=== PATIENT | male | born 1990 | race Caucasian/White ===

== ENCOUNTER 2018-11-03 02:15 | Emergency (ER) | payer MEDICAID ==
[~2018-11-03] VITALS: Ht 172.7 cm; Wt 105.0 kg
[2018-11-03] MEDS ORDERED: IBUPROFEN 600MG TABLET PO ONE (05:00)
[2018-11-03] MEDS ORDERED: TRAMADOL 50MG TABLET PO ONE (05:00)
[2018-11-03] MEDS ORDERED: AMOXICILLIN/POTASSIUM CLAVULANATE 875/125MG TAB PO ONE (06:15)
[2018-11-03 06:57] VITALS: BP 137/67
== END 2018-11-03 08:30 | disposition home or self-care (01) ==
LOC: ER 08:16
DX: S61.452A Open bite of left hand, initial encounter (principal); S60.222A Contusion of left hand, initial encounter; S00.83XA Contusion of other part of head, initial encounter; L03.114 Cellulitis of left upper limb; Y04.1XXA Assault by human bite, initial encounter; Y93.89 Activity, other specified; Y92.89 Other specified places as the place of occurrence of the external cause
CPT/HCPCS: 73130; 99284

== ENCOUNTER 2020-06-14 02:11 | Emergency (ER) | payer MEDICAID ==
[~2020-06-14] VITALS: Ht 167.6 cm; Wt 118.0 kg
[2020-06-14 02:13] VITALS: BP 124/80
[2020-06-14] MEDS ORDERED: SODIUM CHLORIDE 0.9% 1,000 ML IV ONE (03:00)
[2020-06-14] MEDS ORDERED: KETOROLAC 30MG/ML VIAL IV ONE (03:00)
[2020-06-14 04:17] LABS: CHLORIDE 102 mEq/L (98-107)
[2020-06-14 04:18] LABS: BASOPHILS % 0.4 % (0.0-2.0); EOSINOPHILS % 0.6 % (0.0-5.0); HEMATOCRIT. 46.3 % (42.0-52.0); HEMOGLOBIN. 16.1 g/dL (14.0-18.0); LYMPHOCYTES % 12.6 % (20.0-50.0); MEAN CORPUSCULAR HEMOGLOBIN 29.4 pg (28.0-32.0); MEAN CORPUSCULAR VOLUME 84.4 fL (80.0-94.0); MEAN PLATELET VOLUME 8.1 fl (7.4-10.4); MONOCYTES % 11.5 % (2.0-8.0); NEUTROPHILS % 74.9 % (40.0-76.0); PLATELET 387 x1000/uL (130-400); RED BLOOD CELL COUNT 5.49 mill/uL (4.7-6.1); RED CELL DISTRIBUTION WIDTH 13.7 % (11.6-14.6)
== END 2020-06-14 06:11 | disposition home or self-care (01) ==
LOC: ER 02:11
DX: U07.1 COVID-19 (principal); R06.02 Shortness of breath; F41.9 Anxiety disorder, unspecified
CPT/HCPCS: 36415; 71045; 80053; 83880; 84484; 85025; 93005; 96360; 99285; J1885